=== PATIENT | female | born 1970 | race Caucasian/White ===

== ENCOUNTER 2018-10-22 19:08 | Emergency (ER) | payer BC | END 2018-10-22 20:04 | disposition left against medical advice (07) | LOC: JP.ED 19:08 | DX: Z53.21 Procedure and treatment not carried out due to patient leaving prior to being seen by health care provider (principal) ==

== ENCOUNTER 2020-11-07 09:49 | Emergency (ER) | payer BC ==
[2020-11-07] MEDS ORDERED: Ibuprofen 600 MG Tab PO ONE (10:15)
--- NOTE | 2020-11-07 10:20 | EDM.PDOC ---
ED HPI GENERAL MEDICAL PROBLEM - General Chief Complaint: Back Pain or Injury Stated Complaint: POSSIBLE BROKEN RIBS FROM FALL Time Seen by Provider: 11/07/20 10:17 Source of Information: Reports: Patient History Limitations: Reports: No Limitations - History of Present Illness INITIAL COMMENTS - FREE TEXT/NARRATIVE: pt got off of her eliptical today and fell backwards and hit the desk with her left rib cage post. She is having pain with deep breathing. Onset: Today, Sudden Duration: Hour(s): Associated Symptoms: Reports: Chest Pain, Other (pain with deep breathing. 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: Endocrine/Metabolic History: Reports: Hypothyroidism - Past Surgical History Musculoskeletal Surgical History: Reports: Arthroscopic Knee Social & Family History - Tobacco Use Tobacco Use Status *Q: Never Tobacco User - Caffeine Use Caffeine Use: Reports: None - Recreational Drug Use Recreational Drug Use: No ED ROS GENERAL - Review of Systems Review Of Systems: See Below Constitutional: Reports: No Symptoms HEENT: Reports: No Symptoms Respiratory: Reports: Pleuritic Chest Pain, Other (pt is hurting when she takes a deep breathing) Cardiovascular: Reports: Chest Pain Endocrine: Reports: No Symptoms GI/Abdominal: Reports: No Symptoms : Reports: No Symptoms Musculoskeletal: Reports: Other (pain in left post reib cage. ) Skin: Reports: No Symptoms ED EXAM, UPPER BACK/NECK PAIN - Physical Exam Exam: See Below Text/Narrative:: pt fell and hit the left post chest on the desk. She is having severe pain at this time. Exam Limited By: No Limitations General Appearance: Alert, Anxious, Moderate Distress Ears Exam: Normal External Exam Nose Exam: Normal Inspection Throat/Mouth Exam: Normal Inspection Head Exam: Atraumatic Neck Exam: Non-Tender Cardiovascular/Respiratory: Regular Rate, Rhythm, Normal Breath Sounds, Other (pt is very tender to palpate the left post rib area--lower portion. Pt does have an abrasion in that area. ) GI/Abdominal: Soft, Non-Tender (Female) Exam: Deferred Rectal (Female) Exam: Deferred Back Exam: Normal Inspection Extremities: Normal Inspection Course - Vital Signs Last Recorded V/S: Last Vital Signs Temp 36.3 C 11/07/20 10:01 Pulse 55 L 11/07/20 10:01 Resp 16 11/07/20 10:01 BP 127/56 L 11/07/20 10:01 Pulse Ox 98 11/07/20 10:01 - Orders/Labs/Meds Orders: Active Orders 24 hr Category Date Time Status Ribs 2V w Chest Lt [CR] Stat Exams 11/07/20 10:16 Ordered Meds: Medications Discontinued Medications Generic Name Dose Route Start Last Admin Trade Name Freq PRN Reason Stop Dose Admin Ibuprofen 600 mg 11/07/20 10:15 11/07/20 10:22 Ibuprofen 600 Mg Tab PO 11/07/20 10:16 600 mg ONETIME ONE Administration - Re-Assessments/Exams Free Text/Narrative Re-Assessment/Exam: 11/07/20 11:12 chest xray and rib detail was gotten which shows a probable fracture of the 10th rib. The chest xray looked good. pt is more comfortable at this time. Departure - Departure Time of Disposition: 11:08 Disposition: Home, Self-Care 01 Condition: Fair Clinical Impression: Rib fracture - Discharge Information Referrals: Dacia Rich DO [Primary Care Provider] - Forms: ED Department Discharge Care Plan Goals: encourage deep breathing, motrin 600mg q6h as needed for pain, rib binder, rtc if problems. Sepsis Event Note (ED) - Evaluation Sepsis Screening Result: No Definite Risk - Focused Exam Vital Signs: Vital Signs Temp Pulse Resp BP Pulse Ox 11/07/20 10:01 36.3 C 55 L 16 127/56 L 98 - My Orders Last 24 Hours: My Active Orders 11/07/20 10:16 Ribs 2V w Chest Lt [CR] Stat - Assessment/Plan Last 24 Hours: My Active Orders 11/07/20 10:16 Ribs 2V w Chest Lt [CR] Stat
--- NOTE | 2020-11-08 11:10 | CR ---
Ribs 2V w Chest Lt CLINICAL HISTORY: Pain after fall FINDINGS: There is a minimally displaced fracture of the left 10th rib posteriorly. There is a nondisplaced fracture of the 11th rib. 12th rib is not well seen. There is no pneumothorax. IMPRESSION: Fractures of the left 10th 11th and possibly 12th ribs
== END 2020-11-07 11:26 | disposition home or self-care (01) ==
LOC: JP.ED 09:49
DX: S22.42XA Multiple fractures of ribs, left side, initial encounter for closed fracture (principal); Z79.899 Other long term (current) drug therapy; W22.8XXA Striking against or struck by other objects, initial encounter
CPT/HCPCS: 71101-26-LT; 71101-LT; 99283-25; A9270-GY